=== PATIENT | male | born 1970 | race Caucasian/White ===

== ENCOUNTER 2019-11-28 11:20 | Outpatient (CLI) | payer BC ==
[2019-11-28] MEDS ORDERED: MIDAZOLAM 1 MG/ML, 5ML ONE (12:08)
[2019-11-28] MEDS ORDERED: FENTANYL PF 100 MCG/2ML ONE ×2 (12:08)
[2019-11-28] MEDS ORDERED: NALOXONE 1 MG/ML, 2ML ONE (12:08)
[2019-11-28] MEDS ORDERED: FLUMAZENIL 0.1 MG/1 ML, 5ML ONE (12:08)
== END 2019-11-28 23:59 | disposition home or self-care (01) ==
LOC: RAD 11:20
PROVIDERS: ATTEND Physical Medicine & Rehabilitation
DX: M54.12 Radiculopathy, cervical region (principal); M54.16 Radiculopathy, lumbar region; M48.02 Spinal stenosis, cervical region; M48.061 Spinal stenosis, lumbar region without neurogenic claudication; M25.78 Osteophyte, vertebrae
CPT/HCPCS: 72141; 72148; 99156; 99157; J2250; J3010; J2310